=== PATIENT | female | born 1995 | race Caucasian/White ===

== ENCOUNTER 2018-01-20 21:27 | Emergency (ER) | payer OTHER, BC ==
[2018-01-20 21:47] LABS: Bilirubin Negative (Negative); Blood, Urine Moderate (Negative); Clarity CLEAR (Clear); Glucose, Urine (Dipstick) Negative (Negative); Leukocyte Moderate (Negative); Nitrite Negative (Negative); Protein, Urine (Dipstick) Negative (Neg-Trace); Specific Gravity, Urine 1.016 (1.002-1.036); Urobilinogen 0.2 mg/dL (0.2-1.0); pH, Urine 7.5 (5.0-9.0)
[2018-01-20 21:48] LABS: Pregnancy Test - Urine (BHCG) Negative (Negative); Pregu Control Background? CLEAR/WHITE (CLR/WHITE); Pregu Control Bar Appear? YES (CONTROL BAR); Specific Gravity 1.016 (1.002-1.036)
[2018-01-20 21:49] LABS: Bacteria/HPF 1+ HPF (None Seen); Hyaline Casts/LPF 0-3 HYALINE CAST LPF (0-3 Hyaline); Pathc Cast-AUWi Flag 0.43 (0-2.49); RBC/HPF 0-3 HPF (0-3)
[2018-01-20 22:12] LABS: #Basophils 0.1 thou/uL (0.0-0.2); #Eosinphils 0.3 thou/uL (0.0-0.7); #Lymphocytes 2.9 thou/uL (1.20-3.40); #Monocytes 0.5 thou/uL (0.11-0.59); #Neutrophils 5.8 thou/uL (1.40-6.50); %Basophils 0.7 % (0.0-1.0); %Eosinophils 3.4 % (0.0-10.0); %Lymphocytes 30.6 % (21.0-51.0); %Monocytes 5.3 % (0.0-10.0); %Neutrophils 60.1 % (42.0-75.0); Hemoglobin 12.7 g/dL (12.0-16.0); Mean Corpuscular HGB CONC 34.1 g/dL (32.0-36.0); Mean Corpuscular Hemoglobin 30.9 pg (27.0-31.0); Mean Corpuscular Volume 90.5 fl (81.0-99.0); Mean Platelet Volume 6.3 fL (7.4-10.4); Platelet Count 255 thou/uL (130-400); RBC Distribution Width 11.3 % (11.5-14.5); Red Blood Cell (RBC) Count 4.12 mill/uL (4.20-5.40); White Blood Cell (WBC) Count 9.6 thou/uL (4.8-10.8)
[2018-01-20 22:32] LABS: ALT (SGPT) 15 U/L (8-55); AST (SGOT) 14 U/L (5-34); Albumin 4.1 g/dL (3.5-5.0); Alkaline Phosphatase 45 U/L (40-150); Anion Gap 9 mmol/L (10-20); BUN (Urea Nitrogen) 12 mg/dL (7.0-18.7); Bilirubin, Total 0.2 mg/dL (0.2-1.2); Calc. Creatinine Clearance 0 mL/min (70-130); Calcium 9.1 mg/dL (7.8-10.44); Carbon Dioxide 28 mmol/L (22-29); Chloride 104 mmol/L (98-107); Estimated GFR-MDRD 75; Globulin 2.9 g/dL (2.4-3.5); Glucose 115 mg/dL (70-105); Lipase 19 U/L (8-78); Potassium 3.9 mmol/L (3.5-5.1); Sodium 137 mmol/L (136-145)
[2018-01-21 03:08] LABS: PTT 34.3 SEC (22.9-36.1); Prothrombin Time 13.6 SEC (12.0-14.7)
[2018-01-21] MEDS ORDERED: Pantoprazole 40 MG VIAL ONE (03:12)
[2018-01-21] MEDS ORDERED: Ondansetron ODT 4 MG TAB ONE (03:12)
--- NOTE | 2018-01-21 08:37 | ULT ---
PRELIMINARY REPORT/[facility]/EMERGENTY AFTER-HOURS PROCEDURE US Abdomen Limited, Right Upper Quadrant CLINICAL HISTORY: 22 years old, female; Pain and signs and symptoms; Nausea; Abdominal pain; Localized; Right upper vargas drandria (ruq) TECHNIQUE: Real-time ultrasound of the right upper quadrant with image documentation. COMPARISON: No relevant prior studies available. FINDINGS: Limitations: Limited study due to increased bowel gas. Liver: Liver is normal in length with normal echogenicity. No intrahepatic bile duct dilation. Gallbladder: Gallbladder does not appear to contain stones. No evidence of gallbladder wall thickenin g. No evidence of pericholecystic fluid. Common bile duct: Common bile duct is normal in width at 2 mm. No stones. No dilation. Pancreas: Pancreas not visualized well. Right kidney: Right kidney 3.7 x 4 x 9.4 Cm appears normal. No stones. No hydronephrosis. Free fluid: No evidence of free fluid. IMPRESSION: 1. Limited study due to increased bowel gas. 2. No evidence gallstones, biliary ductal dilatation, gallbladder wall thickening or pericholecystic fluid. Thank you for allowing us to participate in the care of your patient. Dictated and Authenticated by: Velia Leija MD 01/21/2018 3:25 AM Central Time ([place] & [place]) FINAL REPORT RIGHT UPPER QUADRANT SONOGRAM: DATE: 01/21/18. TIME: Performed on an emergency basis at 0237 hours. HISTORY: Right upper quadrant pain. FINDINGS: Findings agree with the preliminary report from [facility]. There was no evidence of gallston es or acute biliary obstruction. POS: OFF
== END 2018-01-21 04:22 | disposition home or self-care (01) ==
LOC: ERS 21:27
DX: N39.0 Urinary tract infection, site not specified (principal)
CPT/HCPCS: 36415; 76705; 80053; 81003; 81015; 81025; 83690; 85025; 85610; 85730; 87086; 96361; 96372; 96374; C9113; Q0162